=== PATIENT | male | born 1975 | race Caucasian/White ===

== ENCOUNTER 2016-04-21 13:33 | Observation (INO) | payer OTHER ==
[~2016-04-21] VITALS: Ht 180.3 cm; Wt 70.2 kg
[~2016-04-21 13:33] MED LIST: HYDR-3479 PO; INSU100V28 SUBQ; INSU100V7 SUBQ
[2016-04-21 13:41] VITALS: BP 139/95; PULSE 127; RESP 22; O2SAT 97
--- NOTE | 2016-04-21 13:56 | ED.REPORT ---
HPI-NVD Date of Service Apr 21, 2016 ED Provider: History of Present Illness: vomiting since 1 am today. fever coughing. primary care is ayesha haven't seen for a while. last visist in dec or jan. . still with urination. lina admits to THC use Nursing Notes Stated Complaint: VOMITING Chief Complaint: General Complaint Nursing Notes Reviewed: Yes Allergies: Coded Allergies: Shellfish (Verified Allergy, Unknown, 04/21/16) cyclobenzaprine (Verified Allergy, Unknown, twitching, swelling, 04/21/16) Scheduled Insulin Glargine (Lantus U100 Insulin Vial) 100 Unit/Ml Vial 25-30 UNIT SUBQ HS Insulin Regular, Human (HUMulin-R U100 Insulin Vial) 100 Unit/1 Ml Vial 5 UNIT SUBQ TIDAC General Time Seen by MD: 13:55 Chief Complaint Nausea, Vomiting, Diarrhea Hx Obtained From: Patient Arrived By: Walk-in Vomiting: Vomiting > 10 episodes Past Medical History Past Medical History Reports: Diabetes mellitus Reports: Migraines Smoking History Current Every Day Smoker Social History Alcohol Use: "Social" Drug Use: THC Ambulatory Status Independent Review of Systems Basic Review of Systems Eyes: Vision NL, No discharge Respiratory: No shortness of breath, No cough, No wheeze Cardiovascular: No chest pain, No dyspnea on exertion, No orthopnea, No parox noct dyspnea, No palpitations : No dysuria, No frequency Musculoskeletal: No extremity swelling, No extremity pain, Full range of motion , Joints NL Hematologic: No bleeding, No bruising Endocrine: No cold intolerance, No heat intolerance, No weight gain, No weight loss Allergy / Immune: No allergy Psychiatric: Normal thought content Physical Exam Initial Vital Signs Vital Signs (First) Date Time Temp Pulse Resp B/P Pulse Ox O2 Delivery O2 Flow Rate FiO2 04/21/16 13:41 36.8 127 22 139/95 97 Room Air Initial VS: Reviewed, Vital signs abnormal Head / Eyes: Atraumatic, Normocephalic, PERRL ENT: Mucous membranes moist, Conjunctiva normal, No scleral icterus Neck: Supple, Non-tender, Full range of motion Respiratory: Breath sounds normal, Clear to auscultation, No respiratory distress Cardiovascular: Regular rate & rhythm, Heart sounds normal, Intact distal pulses Back: No CVA tenderness Lymphatic: No lymphadenopathy Extremities: Vascular intact, Neuro intact, No swelling, No tenderness Skin: Warm, Dry, No cyanosis Neurologic: Alert, Oriented, Nonfocal Psychiatric: Mood/affect normal, Behavior normal, Normal thought content General/Constitutional: Awake, Alert, Well appearing Abdomen: Atraumatic, Soft, Non-tender ENT: Atraumatic, Airway patent, Mucous membranes moist, Pharynx NL Respiratory / Chest: Atraumatic, Breath sounds NL, Breath sounds = bilat, No respiratory distress Cardiovascular: Heart sounds NL Heart Rate / Rhythm: Positive: Tachycardia Interpretation & Diagnostics Lab Results Interpretation Result Diagram: 04/21/16 1423 04/21/16 1455 Test 04/21/16 14:15 04/21/16 14:23 04/21/16 14:55 04/21/16 15:14 Osmolality 324 (275-300) Ionized Calcium (Calculated) 3.27mg/dL (3.5-5.2) Phosphorus Level 4.2mg/dL (2.5-4.9) Magnesium Level 2.3mg/dL (1.6-2.6) White Blood Count 19.1th/mm3 (3.8-10.1) Red Blood Count 5.57mil/mm3 (4.40-5.80) Hemoglobin 17.1g/dL (13.8-17.2) Hematocrit 52.9% (41.0-50.0) Mean Corpuscular Volume 95.0fL (81-100) Mean Corpuscular Hemoglobin 30.7pg (27.0-35.0) Mean Corpuscular Hemoglobin Concent 32.3% (32.0-37.0) Red Cell Distribution Width 12.8% (12.3-15.4) Platelet Count 490bil/L (150-400) Neutrophils (%) (Auto) 87.0% (40-74) Lymphocytes (%) (Auto) 5.7% (14-46) Monocytes (%) (Auto) 5.2% (4-12) Eosinophils (%) (Auto) 0.1% (0-5) Basophils (%) (Auto) 0.4% (0-3) Lactic Acid Level 2.2mmol/L (0.4-2.0) Troponin T < 0.010ug/L (0.0-0.011) Sodium Level 138mEq/L (134-144) Potassium Level 5.0mEq/L (3.5-5.2) Chloride Level 98mEq/L (97-108) Carbon Dioxide Level 4mmol/L (18-29) Blood Urea Nitrogen 24mg/dL (6-20) Creatinine 1.05mg/dL (0.76-1.27) Estimat Glomerular Filtration Rate 84mL/min (>59) Glucose Level 266mg/dL (60-99) Calcium Level 7.7mg/dL (8.5-10.1) Total Bilirubin 0.4mg/dL (0.0-1.2) Aspartate Amino Transf (AST/SGOT) 32U/L (0-50) Alanine Aminotransferase (ALT/SGPT) 43U/L (0-44) Alkaline Phosphatase 67U/L (25-150) Total Protein 7.5g/dL (6.4-8.4) Albumin 4.7g/dL (3.4-5.0) Ketones 1:16 Amylase Level 21U/L (28-100) Lipase 20U/L (13-60) Test 04/21/16 15:15 04/21/16 15:45 Urine Color Yellow (YELLOW) Urine Appearance Clear (CLEAR,HAZY) Urine pH 5.5 (5.0-8.0) Urine Specific [place] >1.030 (1.003-1.035) Urine Protein 30mg/dL (NEG,TRACE) Urine Glucose (UA) 500mg/dL (NEGATIVE) Urine Ketones >80mg/dL (NEGATIVE) Urine Occult Blood Moderate (NEGATIVE) Urine Nitrite Negative (NEGATIVE) Urine Bilirubin Negative (NEGATIVE) Urine Urobilinogen Normalmg/dL (NORMAL) Urine Leukocyte Esterase Negative (NEGATIVE) Urine RBC 0-2/hpf (0-2) Urine WBC 0-5/hpf (0-5) Urine Epithelial Cells Few/hpf (NONE-MOD) Urine Crystals None seen (NONE SEEN) Urine Bacteria Few/hpf (NONE-FEW) Urine Hyaline Casts None/lpf (NONE) Urine Granular Casts None seen (NONE SEEN) Urine Waxy Casts None seen (NONE SEEN) Urine Red Blood Cell Casts None seen (NONE SEEN) Urine White Blood Cell Casts None seen (NONE SEEN) Urine Mucus None seen (None Seen) Urine Trichomonas None seen (NONE SEEN) Urine Yeast None (NONE SEEN) Urinalysis Comment None Urine Culture Reflexed Not indicated Lab Results Interpretation: influenza is negative X-Ray Interpretation Xray Interpretation: FINDINGS: Surgical changes and devices: None. Lungs and pleura: No pleural effusions or pneumothorax. Lungs are clear. Mediastinum: Mediastinal contours appear normal. Heart size is normal. Bones and chest wall: No suspicious bony lesions. Overlying soft tissues appear unremarkable. IMPRESSION: No acute cardiopulmonary findings. Dictated by: Audra Valdez M.D. on 04/21/2016 at 14:37 Discharge & Departure Impression: Primary Impression: DKA (diabetic ketoacidoses) Diabetes mellitus type: type 2 Diabetes mellitus complication detail: without coma Qualified Code: E13.10 - Other specified diabetes mellitus with ketoacidosis without coma Disposition: ADMITTED TO HOSPITAL Referrals: Ezequiel Dominguez MD (PCP) EDSupervising Provider for APC: Herve Gillis MD copies to: Ezequiel Dominguez MD, Sue ARNP Apr 21, 2016 13:56
[2016-04-21] MEDS ORDERED: Insulin Human REGular 300 Unit/3 mL Inj SUBQ STA (14:01)
[2016-04-21] MEDS ORDERED: Ondansetron 8 mg ODT Tablet PO ONE (14:05)
[2016-04-21] MEDS ORDERED: 0.9% Sodium Chloride 1,000 ML IV ONE ×5 (14:05→19:50)
[2016-04-21] MEDS ORDERED: Ondansetron 2 mg/mL 2 mL Inj ONE ×2 (14:06→14:07)
[2016-04-21] MEDS ORDERED: Insulin Human REGular-Omnicell 100 Unit/mL ONE (14:06)
--- NOTE | 2016-04-21 14:10 | ABG ---
DateTimeAnalyzed 14:04:00 -_ pH ____7.085 - pCO2 ___24.6__ -mmHg pO2 ___42.9__ -mmHg HCO3- ____7.0__ -mmol/L ABE __-23.1__ -mmol/L tHb ___17.6__ -g/dL O2Hb ___64.8__ -% COHb ____1.3__ -% MetHb ____1.2__ -% sO2 ___66.5__ -% FIO2 ___21.0__ -% Drawn By LAB - Date/Time Notified____ 14:10:00 -_ Notified By RC - Notified Whom ____BAERG - B 763 -mmHg tO2 ___16.0__ -Vol% Paul test N/A -
[2016-04-21 14:26] LABS: BASOPHILS % (AUTO) 0.4 % (0-3); EOSINOPHILS % (AUTO) 0.1 % (0-5); MONOCYTES % (AUTO) 5.2 % (4-12); Mean Corpuscular Hemoglobin 30.7 pg (27.0-35.0); Platelet Count 490 bil/L (150-400)
--- NOTE | 2016-04-21 14:40 | DRSVH ---
PROCEDURE: X-RAY CHEST ONE VIEW, PORTABLE ([id number]) INDICATIONS: vomiting coughing TECHNIQUE: One view of the chest was acquired. COMPARISON: None. FINDINGS: Surgical changes and devices: None. Lungs and pleura: No pleural effusions or pneumothorax. Lungs are clear. Mediastinum: Mediastinal contours appear normal. Heart size is normal. Bones and chest wall: No suspicious bony lesions. Overlying soft tissues appear unremarkable. IMPRESSION: No acute cardiopulmonary findings. Dictated by: Audra Valdez M.D. on 04/21/2016 at 14:37 Approved by: Audra Valdez M.D. on 04/21/2016 at 14:37
[2016-04-21 14:44] VITALS: PULSE 129; RESP 23; O2SAT 98
[2016-04-21] MEDS ORDERED: Acetaminophen IV 1,000 MG in IV Premix 1 EACH IV ONE (14:45)
[2016-04-21 15:18] VITALS: BP 148/98; PULSE 120; RESP 17; O2SAT 98
[2016-04-21 15:32] LABS: Lipase 20 U/L (13-60)
--- NOTE | 2016-04-21 16:02 | PCM.HPMED ---
Subjective Date of Service Apr 21, 2016 Primary Provider: Admitting Physician: Primary Care Physician: Ezequiel Dominguez MD Attending Physician: Chief Complaint: Vomiting HISTORY was OBTAINED FROM PATIENT / MEDITECH NOTES History of present illness 40-year-old male, 1 year hx of insulin use for DM, last admitted January 2016 for 1st DKA episode associated gastroenteritis/vomiting, now presents with vomiting since 1am, blood tinged, associated diarrhea/right leg cramp/ epigastric pain/fever/chills, no sick contacts, poor eating and insulin administration, BG lizandro ran out of batteries today. irregular work schedule, cold conditions. In the ER heart rate 120s, glucose 386, bicarbonate 4, pH 7.08. WBC 19. s/p 3 L normal saline, insulin drip started, Tylenol, ondansetron, Ativan Review of Systems - none of the following - sick contact / wt change/ [employer] / sob / cough / bleeding/bruising / leg swelling / yeast infections / rash c/o GERD, no medications // poor eating since high school no gastroparesis hx / / left kidney pain x years w/ urine smelling like asparagus FAMILY HX no diabetes SOCIAL HX EtOH, smoker, MJ MEDICATIONS Lantus 30units qHS Novolin 5-7 units with meals twice daily PMH back cyst Diabetes mellitus, type 2 Migraines Nicotine dependence depression pneumothorax meningitis GERD Excision of anal warts Allergies Coded Allergies: Shellfish (Verified Allergy, Unknown, 06/03/14) cyclobenzaprine (Verified Allergy, Unknown, twitching, swelling, 06/03/14) PMH Social History Hx Alcohol Use: Yes Hx Substance Use: Yes (SMOKE MARIJUANA) Hx Tobacco Use: Yes Smoking Status: Current Every Day Smoker Exam Vital Signs Vital Sign - Last Date Time Temp Pulse Resp B/P Pulse Ox O2 Delivery O2 Flow Rate FiO2 04/21/16 15:18 120 17 148/98 98 Room Air 04/21/16 13:41 36.8 Lab and Diagnostics Labs Exam on admission on room air NAD A and O x 3 mood affect WNL NC/AT no icterus no injected eyes EOMI PERRL /no pharyngeal lesions/ no oral lesions / hearing intact Supple neck CTAB equal chest rise / no accessory muscle use / speaks in full sentences / no rrw mildly tachy RRR S1 S2 / no mrg / 2+ radial pulses Soft nt, except for epigastric palpation w. mild tenderness, nd + BS no hepatosplenomegaly No edema no cyanosis no ecchymosis of lower extremities No rash / no jaundice HODGSON EKG SR [address] changes CXR negative for infiltrates UA pending stool cx pending hpylori pending LFT normal Trop negative 1 lactic acid elevated Result Diagram: 04/21/16 1423 04/21/16 5355 Assessment & Plan Active issues and reason for admission 40-year-old male with DKA, insulin-dependent, vomiting/leukocytosis, evaluating for gastroenteritis with hx GERD/ulcer. -- pending h pylori. PPI IV BID. -- IV fluids, trend chemistries, DKA protocol/insulin drip -- anticipate change 500cc/hr in the next few hours and change to D5 IV fluid -- trend troponin -- Zofran, Phenergan when necessary -- UA/Stool cultures pending Elevated creatinine, likely prerenal -- Baseline 0.6 -- chronic left kidney pain, no kidney stone, pending U/S renal to evaluate for hydronephrosis/incomplete bladder emptying Chronic issues known prior to admission, present on admission EtOH. no withdrawal 01/2016 admission. ativan prn Smoker/MJ. patch prn Migraine Depression Diet nothing by mouth until off insulin drip DVT prophylaxis heparin scd ambulate Code full Disposition ICU, social service worker to assist w/ new PCP Assessment and plan were discussed with patient Braden Vides MD Apr 21, 2016 16:02
[2016-04-21] MEDS ORDERED: Acetaminophen IV 1,000 MG in IV Premix 1 EACH IV PRN (16:05)
[2016-04-21] MEDS ORDERED: Ondansetron 2 mg/mL 2 mL Inj IVPUSH PRN ×2 (16:05)
[2016-04-21] MEDS ORDERED: Promethazine 25 mg/mL Inj IM PRN (16:05)
[2016-04-21 16:24] LABS: APPEARANCE,URINE CLEAR (CLEAR,HAZY); COLOR,URINE YELLOW (YELLOW); PH,URINE 5.5 (5.0-8.0)
[2016-04-21 16:25] LABS: OCCULT BLOOD,URINE MODERATE (NEGATIVE); UROBILINOGEN,URINE NORMAL (NORMAL)
[2016-04-21] MEDS ORDERED: D5W1/2NS 1,000 mL IV PRN (16:40)
[2016-04-21] MEDS ORDERED: Insulin Human REGular Inj 100 UNIT in 0.9% Sodium Chloride-Pha MIX 100 ML IV SCH (16:40)
[2016-04-21 16:53] VITALS: BP 141/74; PULSE 114; RESP 29; O2SAT 100
--- NOTE | 2016-04-21 17:00 | NUR ---
Admit to CCU: Patient arrived to CCU room 2020 via stretcher. A&O X3. Tele: Sinus Tach 100-115. VSS. Denies CP or SOB. IV X2 SL. BG 194. Pharmacy has been notified from ED and CCU RN for Insulin gtt need multiple times.
[2016-04-21 17:18] LABS: Magnesium 2.3 mg/dL (1.6-2.6); Phosphorus 4.2 mg/dL (2.5-4.9)
[2016-04-21] MEDS: 0.9% Sodium Chloride 1,000 ML IV SCH ×2 (17:53→19:15)
[2016-04-21] MEDS: Pantoprazole 4 mg/mL 10 mL Inj IVPUSH SCH ×2 (18:05→20:16)
[2016-04-21 20:00] VITALS: BP 144/80; PULSE 101; RESP 20; O2SAT 99
[2016-04-21 20:04] LABS: Phosphorus 2.2 mg/dL (2.5-4.9)
[2016-04-21 20:06] LABS: TROPONIN T < 0.010 ug/L (0.0-0.011)
[2016-04-21] MEDS: Heparin 5,000 Unit/mL Inj SUBQ SCH (20:16)
[2016-04-21] MEDS: Benzocaine-Menthol Lozenge 2/Pkg PO PRN ×2 (20:16→23:32)
[2016-04-21] MEDS ORDERED: Calcium GLUCO 10% (mEq) Inj 9.3 MEQ in Dextrose 5% 100 ML IV ONE (22:45)
[2016-04-21] MEDS ORDERED: Sodium Phosphate Inj 20 MEQ in Dextrose 5% 250 ML IV ONE (22:45)
[2016-04-21 23:27] LABS: Phosphorus 1.4 mg/dL (2.5-4.9)
[2016-04-22] VITALS: BP 122/71; PULSE 95; RESP 21; O2SAT 97
--- NOTE | 2016-04-22 01:27 | NUR ---
P) DKA/fever Pt. initially tachycardic with rates between 100-120's, current rate 87, sleeping. Lungs CTA, only c/o pain is sore throat from vomiting. DKA insulin protocol applied, last blood sugar 114mg/dl, calcium and phosphorus riders also infusing. I) Meds per 's orders, cont. to monitor closely. E) Resting quietly with eyes closed, initial fever resolved, last temp 36.8c orally, initial temp. 37.6c orally.
[2016-04-22 03:15] LABS: Mean Corpuscular Hemoglobin 30.8 pg (27.0-35.0); Mean Corpuscular Volume 92.3 fL (81-100)
[2016-04-22 03:56] LABS: Phosphorus 2.6 mg/dL (2.5-4.9)
[2016-04-22 04:00] VITALS: BP 134/82; PULSE 82; RESP 17; O2SAT 98
[2016-04-22 07:38] LABS: Phosphorus 1.9 mg/dL (2.5-4.9)
[2016-04-22 07:43] VITALS: BP 141/82; PULSE 74; RESP 19; O2SAT 98
[2016-04-22] MEDS: Pantoprazole 4 mg/mL 10 mL Inj IVPUSH SCH (08:32)
[2016-04-22] MEDS: Benzocaine-Menthol Lozenge 2/Pkg PO PRN (08:32)
[2016-04-22] MEDS: Heparin 5,000 Unit/mL Inj SUBQ SCH (08:33)
[2016-04-22 12:15] VITALS: BP 130/70; PULSE 75; RESP 18; O2SAT 99
--- NOTE | 2016-04-22 13:14 | DRSVH ---
PROCEDURE: US RENAL SONOGRAM INDICATIONS: left kidney pain TECHNIQUE: Real-time scanning was performed of the kidneys and bladder, with image documentation. COMPARISON: None. FINDINGS: Kidneys: Kidneys are normal in size. Right kidney measures 11.6 cm long; left kidney measures 12.4 cm long. Right renal cortical thickness is 1.6 cm; left renal cortical thickness is 1.5 cm. Renal c ortical echotexture is normal. No hydronephrosis or nephrolithiasis. No suspicious solid mass lesio ns. Bladder: Pre-void bladder volume is 838 mL. Post-void residual is 5 mL. Pre-void images demonstrat e no intraluminal masses or stones. On pre-void images, right ureteral jets are noted with color Dop pler interrogation. (Of note, ureteral jets may not be detectable in up to 25% of cases due to insuf ficient differences in specific gravity between ureteral and bladder urine). Left ureteral jet is no t visualized Miscellaneous: No free pelvic fluid. IMPRESSION: No hydronephrosis. Dictated by: Tony Mcmahan M.D. on 04/22/2016 at 13:12 Approved by: Tony Mcmahan M.D. on 04/22/2016 at 13:12
--- NOTE | 2016-04-22 14:29 | PCM.DIMED ---
MEET FLORES DO 04/22/16 1134: Discharge Instructions Date of Service Apr 22, 2016 Dates of Hospitalization Apr 21, 2016 at 16:18 Discharge Diagnosis Discharge Diagnosis DKA Test Results Laboratory Tests 72 Hours Test 04/21/16 14:15 04/21/16 14:23 04/21/16 14:55 04/21/16 15:14 Osmolality 324 (275-300) Calcium Level 7.9mg/dL (8.5-10.1) 7.7mg/dL (8.5-10.1) Ionized Calcium (Calculated) 3.27mg/dL (3.5-5.2) Phosphorus Level 4.2mg/dL (2.5-4.9) Magnesium Level 2.3mg/dL (1.6-2.6) Total Protein 7.7g/dL (6.4-8.4) 7.5g/dL (6.4-8.4) White Blood Count 19.1th/mm3 (3.8-10.1) Red Blood Count 5.57mil/mm3 (4.40-5.80) Hemoglobin 17.1g/dL (13.8-17.2) Hematocrit 52.9% (41.0-50.0) Mean Corpuscular Volume 95.0fL (81-100) Mean Corpuscular Hemoglobin 30.7pg (27.0-35.0) Mean Corpuscular Hemoglobin Concent 32.3% (32.0-37.0) Red Cell Distribution Width 12.8% (12.3-15.4) Platelet Count 490bil/L (150-400) Neutrophils (%) (Auto) 87.0% (40-74) Lymphocytes (%) (Auto) 5.7% (14-46) Monocytes (%) (Auto) 5.2% (4-12) Eosinophils (%) (Auto) 0.1% (0-5) Basophils (%) (Auto) 0.4% (0-3) Lactic Acid Level 2.2mmol/L (0.4-2.0) Troponin T < 0.010ug/L (0.0-0.011) Sodium Level 138mEq/L (134-144) Potassium Level 5.0mEq/L (3.5-5.2) Chloride Level 98mEq/L (97-108) Carbon Dioxide Level 4mmol/L (18-29) Blood Urea Nitrogen 24mg/dL (6-20) Creatinine 1.05mg/dL (0.76-1.27) Estimat Glomerular Filtration Rate 84mL/min (>59) Glucose Level 266mg/dL (60-99) Total Bilirubin 0.4mg/dL (0.0-1.2) Aspartate Amino Transf (AST/SGOT) 32U/L (0-50) Alanine Aminotransferase (ALT/SGPT) 43U/L (0-44) Alkaline Phosphatase 67U/L (25-150) Albumin 4.7g/dL (3.4-5.0) Ketones 1:16 Amylase Level 21U/L (28-100) Lipase 20U/L (13-60) Test 04/21/16 15:15 04/21/16 15:45 04/21/16 19:28 04/21/16 22:49 Hemoglobin A1c 10.7% (4.8-5.6) Urine Color Yellow (YELLOW) Urine Appearance Clear (CLEAR,HAZY) Urine pH 5.5 (5.0-8.0) Urine Specific [place] >1.030 (1.003-1.035) Urine Protein 30mg/dL (NEG,TRACE) Urine Glucose (UA) 500mg/dL (NEGATIVE) Urine Ketones >80mg/dL (NEGATIVE) Urine Occult Blood Moderate (NEGATIVE) Urine Nitrite Negative (NEGATIVE) Urine Bilirubin Negative (NEGATIVE) Urine Urobilinogen Normalmg/dL (NORMAL) Urine Leukocyte Esterase Negative (NEGATIVE) Urine RBC 0-2/hpf (0-2) Urine WBC 0-5/hpf (0-5) Urine Epithelial Cells Few/hpf (NONE-MOD) Urine Crystals None seen (NONE SEEN) Urine Bacteria Few/hpf (NONE-FEW) Urine Hyaline Casts None/lpf (NONE) Urine Granular Casts None seen (NONE SEEN) Urine Waxy Casts None seen (NONE SEEN) Urine Red Blood Cell Casts None seen (NONE SEEN) Urine White Blood Cell Casts None seen (NONE SEEN) Urine Mucus None seen (None Seen) Urine Trichomonas None seen (NONE SEEN) Urine Yeast None (NONE SEEN) Urinalysis Comment None Urine Culture Reflexed Not indicated Sodium Level 137mEq/L (134-144) 136mEq/L (134-144) Potassium Level 4.9mEq/L (3.5-5.2) 4.8mEq/L (3.5-5.2) Chloride Level 103mEq/L (97-108) 105mEq/L (97-108) Carbon Dioxide Level 5mmol/L (18-29) 12mmol/L (18-29) Blood Urea Nitrogen 18mg/dL (6-20) 16mg/dL (6-20) Creatinine 0.98mg/dL (0.76-1.27) 0.91mg/dL (0.76-1.27) Estimat Glomerular Filtration Rate 91mL/min (>59) 99mL/min (>59) Glucose Level 196mg/dL (60-99) 134mg/dL (60-99) Calcium Level 7.2mg/dL (8.5-10.1) 7.5mg/dL (8.5-10.1) Ionized Calcium 1.19mmol/L (1.17-1.32) Phosphorus Level 2.2mg/dL (2.5-4.9) 1.4mg/dL (2.5-4.9) Troponin T < 0.010ug/L (0.0-0.011) Test 04/22/16 03:10 04/22/16 06:56 04/22/16 08:00 04/22/16 11:23 White Blood Count 15.0th/mm3 (3.8-10.1) Red Blood Count 4.26mil/mm3 (4.40-5.80) Hemoglobin 13.1g/dL (13.8-17.2) Hematocrit 39.3% (41.0-50.0) Mean Corpuscular Volume 92.3fL (81-100) Mean Corpuscular Hemoglobin 30.8pg (27.0-35.0) Mean Corpuscular Hemoglobin Concent 33.3% (32.0-37.0) Red Cell Distribution Width 12.4% (12.3-15.4) Platelet Count 338bil/L (150-400) Sodium Level 136mEq/L (134-144) 137mEq/L (134-144) 135mEq/L (134-144) Potassium Level 4.1mEq/L (3.5-5.2) 3.6mEq/L (3.5-5.2) 4.0mEq/L (3.5-5.2) Chloride Level 105mEq/L (97-108) 106mEq/L (97-108) 103mEq/L (97-108) Carbon Dioxide Level 19mmol/L (18-29) 17mmol/L (18-29) 17mmol/L (18-29) Blood Urea Nitrogen 15mg/dL (6-20) 16mg/dL (6-20) 16mg/dL (6-20) Creatinine 0.80mg/dL (0.76-1.27) 0.68mg/dL (0.76-1.27) 0.60mg/dL (0.76-1.27) Estimat Glomerular Filtration Rate 114mL/min (>59) 138mL/min (>59) 159mL/min (>59) Glucose Level 149mg/dL (60-99) 146mg/dL (60-99) 266mg/dL (60-99) Calcium Level 8.2mg/dL (8.5-10.1) 8.2mg/dL (8.5-10.1) 8.1mg/dL (8.5-10.1) Phosphorus Level 2.6mg/dL (2.5-4.9) 1.9mg/dL (2.5-4.9) 2.0mg/dL (2.5-4.9) Magnesium Level 2.0mg/dL (1.6-2.6) Thyroid Stimulating Hormone (TSH) 0.517uIU/mL (0.450-4.500) Free Thyroxine 1.17ng/dL (0.82-1.77) Lactic Acid Level 0.9mmol/L (0.4-2.0) Diet Diabetic Activity No restrictions Call your provider Fever or Chills, Shortness of breath, Bleeding, Chest pain, Vomitting, Excessive diarrhea, Weakness (unilateral) Patient Instructions Continue home Insulin regimen, adjustments made at follow up with PCP Follow up with PCP in one week You Hemoglobin A1C is 10.7 this roughly equates to an average blood sugar of 240 , to prevent further hospitalizations and complications of your diabetes please work with your PCP to gain better control of your insulin regimen and blood sugars. We have resources available at our hospital to help you, please call us anytime for more information. Further educational reading: The Diabetes Solution by Berny Nichole MD Follow-up with PCP in: 1 week Rony Turcios MD 04/22/16 1524: Discharge Instructions Attending's Statement The patient was seen and examined together with Dr. Flores on 04/22/2016 and I agree with the history, exam and plan as outlined in the note above. . MEET FLORES DO Apr 22, 2016 11:34 Rony Turcios MD Apr 22, 2016 15:24
[2016-04-22] MEDS ORDERED: Insulin Human REGular 300 Unit/3 mL Inj SUBQ SCH (14:30)
--- NOTE | 2016-04-22 14:50 | NUR ---
DKA to SUBQ insulin transitions/through soreness Patients anion gap this morning at 12 and 14- blood glucose 119 at 0740 and repeated at 0840 at 67- patient was given 1?2 amp of D50 IV X1 blood glucose rechecked at 136 in 15min and 134 in 1h. Patient was started on PO intake and tolerated food well -patient was transitioned to SUBQ regular insulin. Patient was taking PO liquids well IV drips were discontinued. Patient was voiding per urinal QS. Patient denied having pain except for some through soreness- cepacol lozenges at bedside and provided good relive of soreness.
--- NOTE | 2016-04-22 18:02 | PCM.DC.MED ---
Discharge Summary Date of Service Apr 22, 2016 Dates of Hospitalization Date of Hospital Admission Apr 21, 2016 at 16:18 Date of Discharge: Apr 22, 2016 Providers: Admitting Physician: Braden Vides MD Primary Care Physician: Ezequiel Dominguez MD Attending Physician: Braden Vides MD Diagnosis at Time of Discharge Diagnosis at Time of Discharge DKA Procedures XRay, CTs & MRIs US RENAL SONOGRAM IMPRESSION: No hydronephrosis. Dictated by: Tony Mcmahan M.D. on 04/22/2016 at 13:12 Approved by: Tony Mcmahan M.D. on 04/22/2016 at 13:12 X-RAY CHEST ONE VIEW IMPRESSION: No acute cardiopulmonary findings. Dictated by: Audra Valdez M.D. on 04/21/2016 at 14:37 Approved by: Audra Valdez M.D. on 04/21/2016 at 14:37 Brief History Copied from Dr. Vides H&P "40-year-old male, 1 year hx of insulin use for DM, last admitted January 2016 for 1st DKA episode associated gastroenteritis/vomiting, now presents with vomiting since 1am, blood tinged, associated diarrhea/right leg cramp/ epigastric pain/fever/chills, no sick contacts, poor eating and insulin administration, BG lizandro ran out of batteries today. irregular work schedule, cold conditions." Hospital Course 40-year-old male with DKA, insulin-dependent, vomiting/leukocytosis, evaluating for gastroenteritis with hx GERD/ulcer. - pending h pylori. at time of discharge, Protonix IV completed - IV fluids, trend chemistries, DKA protocol/insulin drip -- anticipate change 500cc/hr in the next few hours and change to D5 IV fluid - trended troponin, negative for elevation - Zofran, Phenergan when necessary - UA/Stool cultures negative - chronic left kidney pain, U/S showed no kidney stone, negative for hydro nephrosis - EtOH. no withdrawal 01/2016 admission. 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 External ears normal. Eyes: PERRLA, EOMI. Anicteric sclerae. Mouth: Mouth Normal, Mucous Membranes Moist/[place] Neck: Neck supple with full range of motion. Chest & Lungs: Clear to auscultation bilaterally with no crackles, wheezes, or rhonchi. Cardiovascular: Regular Rate/Rhythm, Normal S1, Normal S2, No Murmurs/Rubs/ Gallops Abdomen: Non-tender, Non-distended, No masses, Normoactive bowel tones, Soft Musculoskeletal: Normal Range of Motion Extremities: No cyanosis/clubbing/edema bilaterally Neurological: Grossly Neurologically Intact, Cranial Nerves 2-12 Intact, Normal Speech, Strength Normal 4/4 ext, Normal Gait, Sensation Intact, Cerebellar Function nl Finger-Nose, Cerebellar Function nl Heel-Mao, Reflexes Normal Test 04/21/16 14:15 04/21/16 14:23 04/21/16 14:55 04/21/16 15:14 Osmolality 324 (275-300) Ionized Calcium (Calculated) 3.27mg/dL (3.5-5.2) Neutrophils (%) (Auto) 87.0% (40-74) Lymphocytes (%) (Auto) 5.7% (14-46) Monocytes (%) (Auto) 5.2% (4-12) Eosinophils (%) (Auto) 0.1% (0-5) Basophils (%) (Auto) 0.4% (0-3) Total Bilirubin 0.4mg/dL (0.0-1.2) Aspartate Amino Transf (AST/SGOT) 32U/L (0-50) Alanine Aminotransferase (ALT/SGPT) 43U/L (0-44) Alkaline Phosphatase 67U/L (25-150) Total Protein 7.5g/dL (6.4-8.4) Albumin 4.7g/dL (3.4-5.0) Ketones 1:16 Amylase Level 21U/L (28-100) Lipase 20U/L (13-60) Test 1/12/17 15:45 04/21/16 19:28 04/22/16 03:10 04/22/16 08:00 Urine Color Yellow (YELLOW) Urine Appearance Clear (CLEAR,HAZY) Urine pH 5.5 (5.0-8.0) Urine Specific [place] >1.030 (1.003-1.035) Urine Protein 30mg/dL (NEG,TRACE) Urine Glucose (UA) 500mg/dL (NEGATIVE) Urine Ketones >80mg/dL (NEGATIVE) Urine Occult Blood Moderate (NEGATIVE) Urine Nitrite Negative (NEGATIVE) Urine Bilirubin Negative (NEGATIVE) Urine Urobilinogen Normalmg/dL (NORMAL) Urine Leukocyte Esterase Negative (NEGATIVE) Urine RBC 0-2/hpf (0-2) Urine WBC 0-5/hpf (0-5) Urine Epithelial Cells Few/hpf (NONE-MOD) Urine Crystals None seen (NONE SEEN) Urine Bacteria Few/hpf (NONE-FEW) Urine Hyaline Casts None/lpf (NONE) Urine Granular Casts None seen (NONE SEEN) Urine Waxy Casts None seen (NONE SEEN) Urine Red Blood Cell Casts None seen (NONE SEEN) Urine White Blood Cell Casts None seen (NONE SEEN) Urine Mucus None seen (None Seen) Urine Trichomonas None seen (NONE SEEN) Urine Yeast None (NONE SEEN) Urinalysis Comment None Urine Culture Reflexed Not indicated Ionized Calcium 1.19mmol/L (1.17-1.32) Troponin T < 0.010ug/L (0.0-0.011) White Blood Count 15.0th/mm3 (3.8-10.1) Red Blood Count 4.26mil/mm3 (4.40-5.80) Hemoglobin 13.1g/dL (13.8-17.2) Hematocrit 39.3% (41.0-50.0) Mean Corpuscular Volume 92.3fL (81-100) Mean Corpuscular Hemoglobin 30.8pg (27.0-35.0) Mean Corpuscular Hemoglobin Concent 33.3% (32.0-37.0) Red Cell Distribution Width 12.4% (12.3-15.4) Platelet Count 338bil/L (150-400) Magnesium Level 2.0mg/dL (1.6-2.6) Thyroid Stimulating Hormone (TSH) 0.517uIU/mL (0.450-4.500) Free Thyroxine 1.17ng/dL (0.82-1.77) Lactic Acid Level 0.9mmol/L (0.4-2.0) Test 04/22/16 11:23 Sodium Level 135mEq/L (134-144) Potassium Level 4.0mEq/L (3.5-5.2) Chloride Level 103mEq/L (97-108) Carbon Dioxide Level 17mmol/L (18-29) Blood Urea Nitrogen 16mg/dL (6-20) Creatinine 0.60mg/dL (0.76-1.27) Estimat Glomerular Filtration Rate 159mL/min (>59) Glucose Level 266mg/dL (60-99) Calcium Level 8.1mg/dL (8.5-10.1) Phosphorus Level 2.0mg/dL (2.5-4.9) Discharge Medications Discharge Medications Insulin Glargine (Lantus U100 Insulin Vial) 100 Unit/Ml Vial 25-30 UNIT SUBQ HS (Reported) Insulin Regular, Human (HUMulin-R U100 Insulin Vial) 100 Unit/1 Ml Vial 5 UNIT SUBQ TIDAC (Reported) Pantoprazole DR (Protonix) 40 Mg Tablet 40 MG PO BID Prescribed by: MEET ROWLAND DO Followup Plan Discharge Diet: Diabetic Discharge Activity: No restrictions Patient Instructions Continue home Insulin regimen, adjustments made at follow up with PCP Follow up with PCP in one week You Hemoglobin A1C is 10.7 this roughly equates to an average blood sugar of 240 , to prevent further hospitalizations and complications of your diabetes please work with your PCP to gain better control of your insulin regimen and blood sugars. We have resources available at our hospital to help you, please call us anytime for more information. Further educational reading: The Diabetes Solution by Berny Nichole MD Follow-up with PCP in: 1 week Time spent Greater than 30 minutes was spent in preparation of discharge with greater than 50% of that time dedicated to patient counseling and coordination of care. . Attending Statement The patient was seen and examined together with Dr. Rowland on 04/22/2016 and I agree with the history, exam and plan as outlined in the note above. . copies to: Ezequiel Dominguez MD, AARON J DO Apr 22, 2016 18:01 Rony Turcios MD Apr 23, 2016 08:11
[2016-04-22] MEDS ORDERED: PANT40TA2 PO (18:04)
--- NOTE | 2016-04-22 19:00 | NUR ---
Discharge Patient was discharge home today at 1500. Patient denied having any nausea, pain or discomfort. Patient verbalized understanding of verbal and written discharge home instructions regarding blood glucose monitoring and control, regular and long acting insulin use and when to use either one, signs and symptoms of high and low blood glucose levels, activity and diet effects on blood glucose, medications and need for follow up medical care. IV sides x2 were removed intact. Patient collected his belongings but remained in the room for additional 40 min waiting for his ride home.
[2016-04-22] MEDS ORDERED: Insulin GLARgine 100 Unit/mL Syringe SUBQ SCH (21:00)
== END 2016-04-22 16:32 | disposition home or self-care (01) ==
LOC: SED 13:33 → INTOOBSV 16:18 → CCU 16:18 → PCC 04-22 09:54
PROVIDERS: ADMIT Urology; ATTEND Urology
DX: E13.10 Other specified diabetes mellitus with ketoacidosis without coma (principal); R11.10 Vomiting, unspecified; K21.9 Gastro-esophageal reflux disease without esophagitis; Z79.4 Long term (current) use of insulin; G43.909 Migraine, unspecified, not intractable, without status migrainosus; F17.210 Nicotine dependence, cigarettes, uncomplicated; F32.9 Major depressive disorder, single episode, unspecified; Z79.899 Other long term (current) drug therapy
CPT/HCPCS: 36415; 71010; 76770; 80048; 80053; 81000; 82009; 82010; 82150; 82306; 82310; 82375; 82803; 82948; 83036; 83605; 83690; 83735; 83930; 84100; 84439; 84443; 84484; 85025; 85027; 86677; 87040; 87081; 87633; 87804; 93005; 96361; 96372; 96374; 96375; 99285; G0378; J0131; J0610; J1644; J1815; J2060; J2405; J7030; J7042